=== PATIENT | male | born 1965 | race Caucasian/White ===

== ENCOUNTER 2017-06-03 15:22 | Inpatient (IN) | payer MEDICAID ==
[~2017-06-03] VITALS: Ht 157.5 cm; Wt 56.2 kg
[2017-06-03 15:24] VITALS: BP_SYST 152
[2017-06-03 15:54] LABS: BASOPHILS % (AUTO) 0.4 % (0.0-2.0); HEMATOCRIT 35.9 % (36-54); HEMOGLOBIN 12.3 g/dL (14.0-18.0); LYMPHOCYTES % (AUTO) 9.1 % (20.5-51.5); MEAN CORPUSCULAR HEMOGLOBIN 34 pg (27-31); MEAN CORPUSCULAR HGB CONC 34 % (32-36); MEAN CORPUSCULAR VOLUME 101 fL (79.0-98.0); MONOCYTES # (AUTO) 1.5 K/uL (0.0-1.0); MONOCYTES % (AUTO) 13.7 % (1.7-9.3); NEUTROPHILS # (AUTO) 8.4 K/uL (1.8-7.7); NEUTROPHILS % (AUTO) 76.8 % (40.0-70.0); PLATELET COUNT (AUTO) 227 K/uL (130-430); RED BLOOD CELL COUNT(AUTO) 3.57 MIL/uL (4.2-6.2); RED CELL DISTRIBUTION WIDTH 13.7 % (9.0-15.0); WHITE BLOOD COUNT (AUTO) 10.9 K/uL (4.8-10.8)
[2017-06-03 16:19] LABS: PROTHROMBIN TIME 10.5 SECS (9.5-12.5)
[2017-06-03 16:34] LABS: ANION GAP 11 (5-15); CALCIUM 9.1 mg/dL (8.4-11.0); CHLORIDE 90 mmol/L (98-107); CREATININE 1.31 mg/dL (0.55-1.30); GLUCOSE 93 mg/dL (70-99); POTASSIUM 3.5 mmol/L (3.5-5.1); SODIUM SERUM 127 mmol/L (136-145); UREA NITROGEN, BLOOD 28 mg/dL (8-21)
[2017-06-03 16:39] LABS: ALANINE AMINOTRANSFERASE 84 U/L (12-78); ALBUMIN 3.7 g/dL (3.4-4.8); ASPARTATE AMINOTRANSFERASE 199 U/L (10-37); TOTAL BILIRUBIN 1.7 mg/dL (0.0-1.0)
[2017-06-03 16:47] LABS: GFR AFRICAN AMERICAN 75 mL/min (>90)
[2017-06-03 17:06] LABS: ALCOHOL, BLOOD < 3 mg/dL (<10)
[2017-06-03 17:09] LABS: ACETAMINOPHEN < 1 ug/mL (1-30)
[2017-06-03] MEDS ORDERED: ASPIRIN 325 MG TABLET PO ONE (17:15)
[2017-06-03] MEDS ORDERED: NACL 0.9% 1,000 ML IV ONE ×2 (17:15→18:30)
[2017-06-03] MEDS ORDERED: LORazepam 2 MG/ML VIAL (FOR ER USE) IVP ONE ×3 (17:15→18:45)
[2017-06-03] MEDS ORDERED: MAGN400O4 PO (17:59)
[2017-06-03] MEDS ORDERED: ANT30 PO (17:59)
[2017-06-03] MEDS ORDERED: VIS50 PO (17:59)
[2017-06-03] MEDS ORDERED: HAL5 PO (17:59)
[2017-06-03] MEDS ORDERED: ACET325T53 PO (17:59)
[2017-06-03] MEDS ORDERED: TRAZ-123 PO (17:59)
[2017-06-03] MEDS ORDERED: FOLI-43 PO (17:59)
[2017-06-03] MEDS ORDERED: CAT.1 PO (17:59)
[2017-06-03] MEDS ORDERED: BEN50 PO (17:59)
[2017-06-03] MEDS ORDERED: MULT PO (17:59)
[2017-06-03] MEDS ORDERED: LORA2TAB95 PO (17:59)
[2017-06-03] MEDS ORDERED: promethazine IM (17:59)
[2017-06-03] MEDS ORDERED: vitamin b-1 (17:59)
[2017-06-03] MEDS ORDERED: IBUP-1969 PO (17:59)
[2017-06-03] MEDS ORDERED: ACETAMINOPHEN 325 MG TABLET PO PRN (18:15)
[2017-06-03] MEDS ORDERED: MORPHINE 2 MG/ML INJ. SYRINGE IVP PRN (18:15)
[2017-06-03] MEDS ORDERED: NITROGLYCERIN 0.4 MG TAB.SUBL SL PRN (18:30)
[2017-06-03] MEDS: cefTRIAXone 1 GM in D5W 50 ML IV SCH (18:30)
[2017-06-03] MEDS ORDERED: POTASSIUM CHLORIDE 20 MEQ TAB.PRT.SR PO PRN (18:45)
[2017-06-03] MEDS ORDERED: ONDANSETRON HCL 4 MG/2 ML VIAL IM PRN (18:45)
[2017-06-03] MEDS ORDERED: ZOLPIDEM TARTRATE 5 MG TABLET PO PRN (18:45)
[2017-06-03] MEDS ORDERED: HYDROcodone/ACETAMIN 10-325 MG TAB PO PRN (18:45)
[2017-06-03] MEDS ORDERED: HEPARIN 25,000 UNITS/D5W 250ML 250 ML IV PRN ×2 (18:45)
[2017-06-03] MEDS ORDERED: BISACODYL 10 MG/SUPPOSITORY RC PRN (18:45)
[2017-06-03] MEDS ORDERED: SIMETHICONE 80 MG TAB.CHEW PO PRN (18:45)
[2017-06-03] MEDS ORDERED: LORazepam 2 MG/ML VIAL (FOR ER USE) ONE (18:56)
[2017-06-03 19:09] LABS: FREE T4 (FREE THYROXINE) 1.3 ng/dl (0.8-1.5); PHOSPHORUS 3.8 mg/dL (2.7-4.5); THYROID STIMULATING HORMONE 4.14 uIu/mL (0.36-3.74)
[2017-06-03 19:33] VITALS: BP_SYST 133
[2017-06-03] MEDS ORDERED: cefTRIAXone 1 GM IVPB PREMIX 50 ML IV ONE (20:42)
[2017-06-03] MEDS ORDERED: *HEPARIN PER PHARMACY XX PRN (21:30)
[2017-06-03] MEDS ORDERED: HEPARIN SODIUM, PORCINE 10,000 UNITS/ 10 ML VIAL IV ONE (21:30)
[2017-06-03] MEDS: DOCUSATE SODIUM 100 MG CAPSULE PO SCH (22:33)
[2017-06-03] MEDS: METOPROLOL TARTRATE 25 MG TABLET PO SCH (22:34)
[2017-06-03 23:02] VITALS: BP_SYST 133
[2017-06-03] MEDS: NACL 0.9% 1,000 ML IV SCH (23:08)
[2017-06-03] MEDS: LORazepam 2 MG/ML VIAL IVP PRN ×2 (23:09→23:17)
[2017-06-04] VITALS (9 sets, daily range): BP systolic 108–154
[2017-06-04] MEDS ORDERED: HALOPERIDOL LACTATE 5 MG/ML VIAL IVP ONE (01:00)
[2017-06-04] MEDS: NACL 0.9% 1,000 ML IV SCH ×3 (04:03→22:01)
[2017-06-04 07:02] LABS: BASOPHILS % (AUTO) 0.4 % (0.0-2.0); EOSINOPHILS % (AUTO) 0.2 % (0.0-4.0); HEMATOCRIT 33.6 % (36-54); HEMOGLOBIN 11.6 g/dL (14.0-18.0); LYMPHOCYTES % (AUTO) 10.6 % (20.5-51.5); MEAN CORPUSCULAR HEMOGLOBIN 35 pg (27-31); MEAN CORPUSCULAR HGB CONC 35 % (32-36); MEAN CORPUSCULAR VOLUME 101 fL (79.0-98.0); MONOCYTES # (AUTO) 1.6 K/uL (0.0-1.0); MONOCYTES % (AUTO) 17.2 % (1.7-9.3); NEUTROPHILS % (AUTO) 71.6 % (40.0-70.0); PLATELET COUNT (AUTO) 232 K/uL (130-430); RED BLOOD CELL COUNT(AUTO) 3.34 MIL/uL (4.2-6.2); RED CELL DISTRIBUTION WIDTH 13.8 % (9.0-15.0); WHITE BLOOD COUNT (AUTO) 9.6 K/uL (4.8-10.8)
[2017-06-04] MEDS ORDERED: HALOPERIDOL 5 MG TABLET (HALDOL) PO PRN (08:00)
[2017-06-04] MEDS ORDERED: MILK OF MAGNESIA 30 ML UDC PO PRN (08:00)
[2017-06-04 09:11] LABS: CALCIUM 8.6 mg/dL (8.4-11.0); POTASSIUM 2.9 mmol/L (3.5-5.1); TOTAL BILIRUBIN 1.4 mg/dL (0.0-1.0)
[2017-06-04 09:12] LABS: ALBUMIN 3.1 g/dL (3.4-4.8)
[2017-06-04] MEDS ORDERED: HEPARIN SODIUM,PORCINE 2000 UNITS/0.4 ML BOLUS IVP PRN (09:45)
[2017-06-04] MEDS ORDERED: HEPARIN SODIUM,PORCINE 3000 UNITS/0.6 ML BOLUS IVP PRN (09:45)
[2017-06-04 09:49] LABS: BILIRUBIN,URINE NEGATIVE (NEGATIVE); BLOOD, URINE 2+ (NEGATIVE); CLARITY/URINE CLEAR (CLEAR); COLOR,URINE YELLOW (YELLOW); GLUCOSE,URINE NEGATIVE (NEGATIVE); KETONES,URINE TRACE (NEGATIVE); LEUKOCYTE ESTERASE ,URINE 2+ (NEGATIVE); NITRITE, URINE NEGATIVE (NEGATIVE); PROTEIN URINE NEGATIVE (NEGATIVE); UROBILINOGEN,URINE 0.2 (0.2-1.0)
[2017-06-04 09:54] LABS: BACTERIA,URINE MODERATE /HPF (None Seen); WBC,URINE 20-50 /HPF (0-3)
[2017-06-04] MEDS: MORPHINE 2 MG/ML INJ. SYRINGE IVP PRN ×3 (09:54→20:17)
[2017-06-04 10:07] LABS: BARBITURATE, URINE NEGATIVE (NEG <=200); BENZODIAZEPINE, URINE POSITIVE (NEG <=150); CANNABINOID, URINE POSITIVE (NEG <=50); COCAINE, URINE NEGATIVE (NEG <=150); METHAMPHETAMINES SCREEN,URINE POSITIVE (NEG <=500); PHENCYCLIDINE SCREEN,URINE NEGATIVE (NEG <=25); URINE AMPHETAMINE POSITIVE (NEG <=500); URINE METHADONE NEGATIVE (NEG <=200)
[2017-06-04 10:08] LABS: OPIATE, URINE NEGATIVE (NEG <=100); UR TRICYCLIC ANTIDEPRESSANTS NEGATIVE (NEG <=300); URINE OXYCODONE SCREEN NEGATIVE (NEG <=100); URINE PROPOXYPHENE SCREEN NEGATIVE (NEG <=300)
[2017-06-04] MEDS: DOCUSATE SODIUM 100 MG CAPSULE PO SCH ×2 (10:13→21:59)
[2017-06-04] MEDS: ASPIRIN 81 MG TAB.CHEW PO SCH (10:14)
[2017-06-04] MEDS: THIAMINE HCL 100 MG TABLET PO SCH (10:14)
[2017-06-04] MEDS: ATORVASTATIN 20 MG TABLET PO SCH (10:14)
[2017-06-04] MEDS: MULTIVITAMINS TAB 1 TABLET PO SCH (10:14)
[2017-06-04] MEDS: FOLIC ACID 1 MG TABLET PO SCH (10:14)
[2017-06-04] MEDS: LISINOPRIL 10 MG TABLET (PRINIVIL) PO SCH (10:15)
[2017-06-04] MEDS: METOPROLOL TARTRATE 25 MG TABLET PO SCH ×2 (10:15→21:58)
[2017-06-04] MEDS ORDERED: POTASSIUM CHLORIDE 20 MEQ TAB.PRT.SR PO ONE (10:30)
[2017-06-04] MEDS: QUEtiapine FUMARATE 25 MG TABLET PO SCH ×2 (14:57→21:56)
[2017-06-04] MEDS: cefTRIAXone 1 GM in D5W 50 ML IV SCH (17:28)
[2017-06-04] MEDS: traZODone HCL 50 MG TABLET (DESYREL) PO SCH (21:58)
[2017-06-04] MEDS: LORazepam 2 MG/ML VIAL IVP PRN (22:01)
[2017-06-05] MEDS: MORPHINE 2 MG/ML INJ. SYRINGE IVP PRN (00:46)
[2017-06-05 04:07] VITALS: BP_SYST 130
[2017-06-05] MEDS: LORazepam 2 MG/ML VIAL IVP PRN (05:04)
[2017-06-05 06:55] LABS: BASOPHILS # (AUTO) 0.1 K/uL (0.0-0.2); BASOPHILS % (AUTO) 0.5 % (0.0-2.0); EOSINOPHILS # (AUTO) 0.1 K/uL (0.0-0.4); EOSINOPHILS % (AUTO) 0.9 % (0.0-4.0); HEMATOCRIT 32.1 % (36-54); HEMOGLOBIN 10.9 g/dL (14.0-18.0); LYMPHOCYTES # (AUTO) 1.5 K/uL (1.0-5.5); LYMPHOCYTES % (AUTO) 14.1 % (20.5-51.5); MEAN CORPUSCULAR HEMOGLOBIN 35 pg (27-31); MEAN CORPUSCULAR HGB CONC 34 % (32-36); MEAN CORPUSCULAR VOLUME 102 fL (79.0-98.0); MONOCYTES # (AUTO) 1.8 K/uL (0.0-1.0); MONOCYTES % (AUTO) 17.1 % (1.7-9.3); NEUTROPHILS % (AUTO) 67.4 % (40.0-70.0); PLATELET COUNT (AUTO) 214 K/uL (130-430); RED BLOOD CELL COUNT(AUTO) 3.14 MIL/uL (4.2-6.2); RED CELL DISTRIBUTION WIDTH 13.4 % (9.0-15.0); WHITE BLOOD COUNT (AUTO) 10.5 K/uL (4.8-10.8)
[2017-06-05 07:10] LABS: CALCIUM 8.4 mg/dL (8.4-11.0); CREATININE 0.94 mg/dL (0.55-1.30); PHOSPHORUS 2.8 mg/dL (2.7-4.5); POTASSIUM 4.2 mmol/L (3.5-5.1)
[2017-06-05] MEDS: NACL 0.9% 1,000 ML IV SCH (07:37)
[2017-06-05 08:00] VITALS: BP_SYST 117
[2017-06-05 08:57] VITALS: BP_SYST 117
[2017-06-05] MEDS: THIAMINE HCL 100 MG TABLET PO SCH (09:00)
[2017-06-05] MEDS: DOCUSATE SODIUM 100 MG CAPSULE PO SCH ×2 (10:39→21:23)
[2017-06-05] MEDS: LISINOPRIL 10 MG TABLET (PRINIVIL) PO SCH (10:40)
[2017-06-05] MEDS: MULTIVITAMINS TAB 1 TABLET PO SCH ×2 (10:40→10:44)
[2017-06-05] MEDS: ONDANSETRON HCL 4 MG/2 ML VIAL IVP PRN (10:41)
[2017-06-05] MEDS: FOLIC ACID 1 MG TABLET PO SCH (10:41)
[2017-06-05] MEDS: ASPIRIN 81 MG TAB.CHEW PO SCH (10:41)
[2017-06-05] MEDS: HALOPERIDOL LACTATE 5 MG/ML VIAL IVP PRN (10:42)
[2017-06-05] MEDS: ATORVASTATIN 20 MG TABLET PO SCH (10:44)
[2017-06-05] MEDS: METOPROLOL TARTRATE 25 MG TABLET PO SCH ×2 (10:45→21:23)
[2017-06-05] MEDS: QUEtiapine FUMARATE 25 MG TABLET PO SCH ×3 (10:52→21:23)
[2017-06-05 11:58] VITALS: BP_SYST 135
[2017-06-05 16:00] VITALS: BP_SYST 116
[2017-06-05 18:30] VITALS: BP_SYST 112
[2017-06-05] MEDS: cefTRIAXone 1 GM in D5W 50 ML IV SCH (18:52)
[2017-06-05] MEDS: traZODone HCL 50 MG TABLET (DESYREL) PO SCH (21:22)
[2017-06-05 22:22] LABS: HEMOGLOBIN A1C 5.1 % (4.8-5.6)
[2017-06-06 00:43] VITALS: BP_SYST 121
[2017-06-06 02:17] LABS: T4 (THYROXINE) 8.5 ug/dL (4.5-12.0)
[2017-06-06] MEDS: LORazepam 2 MG/ML VIAL IVP PRN (03:32)
[2017-06-06] MEDS: HALOPERIDOL LACTATE 5 MG/ML VIAL IVP PRN (04:20)
[2017-06-06 08:00] VITALS: BP_SYST 118
[2017-06-06 08:47] LABS: HEMATOCRIT 37.9 % (36-54); HEMOGLOBIN 12.7 g/dL (14.0-18.0); MEAN CORPUSCULAR HEMOGLOBIN 34 pg (27-31); MEAN CORPUSCULAR HGB CONC 34 % (32-36); MEAN CORPUSCULAR VOLUME 101 fL (79.0-98.0); PLATELET COUNT (AUTO) 311 K/uL (130-430); RED BLOOD CELL COUNT(AUTO) 3.74 MIL/uL (4.2-6.2); RED CELL DISTRIBUTION WIDTH 13.6 % (9.0-15.0); WHITE BLOOD COUNT (AUTO) 8.6 K/uL (4.8-10.8)
[2017-06-06 09:00] LABS: CALCIUM 9.5 mg/dL (8.4-11.0); CREATININE 0.92 mg/dL (0.55-1.30)
[2017-06-06 09:01] LABS: PHOSPHORUS 4.3 mg/dL (2.7-4.5)
[2017-06-06] MEDS: THIAMINE HCL 100 MG TABLET PO SCH (09:13)
[2017-06-06] MEDS: ATORVASTATIN 20 MG TABLET PO SCH (09:13)
[2017-06-06] MEDS: MULTIVITAMINS TAB 1 TABLET PO SCH (09:13)
[2017-06-06] MEDS: ASPIRIN 81 MG TAB.CHEW PO SCH (09:13)
[2017-06-06] MEDS: QUEtiapine FUMARATE 25 MG TABLET PO SCH ×3 (09:13→21:02)
[2017-06-06] MEDS: DOCUSATE SODIUM 100 MG CAPSULE PO SCH ×2 (09:15→21:02)
[2017-06-06] MEDS: LISINOPRIL 10 MG TABLET (PRINIVIL) PO SCH ×2 (09:15→09:16)
[2017-06-06] MEDS: FOLIC ACID 1 MG TABLET PO SCH (09:15)
[2017-06-06] MEDS: ONDANSETRON HCL 4 MG/2 ML VIAL IVP PRN (09:16)
[2017-06-06] MEDS: METOPROLOL TARTRATE 25 MG TABLET PO SCH ×2 (09:17→21:02)
[2017-06-06 11:33] LABS: ATYPICAL LYMPHOCYTES % 2 % (0-0); BAND % (MANUAL) 2 % (0-6); BASOPHILS % (MANUAL) 0 % (0-2); EOSINOPHILS % (MANUAL) 0 % (0-7); LYMPHOCYTES % (MANUAL) 22 % (20-46); MONOCYTES % (MANUAL) 18 % (0-11)
[2017-06-06 11:34] VITALS: BP_SYST 125
[2017-06-06 16:11] VITALS: BP_SYST 117
[2017-06-06 18:45] VITALS: BP_SYST 114
[2017-06-06] MEDS: cefTRIAXone 1 GM in D5W 50 ML IV SCH (19:06)
[2017-06-06] MEDS: traZODone HCL 50 MG TABLET (DESYREL) PO SCH (21:01)
[2017-06-07] MEDS: MORPHINE 2 MG/ML INJ. SYRINGE IVP PRN (00:33)
[2017-06-07 01:03] VITALS: BP_SYST 118
[2017-06-07 08:00] VITALS: BP_SYST 114
[2017-06-07] MEDS: ASPIRIN 81 MG TAB.CHEW PO SCH (08:44)
[2017-06-07] MEDS: FOLIC ACID 1 MG TABLET PO SCH (08:44)
[2017-06-07] MEDS: DOCUSATE SODIUM 100 MG CAPSULE PO SCH (08:44)
[2017-06-07] MEDS: THIAMINE HCL 100 MG TABLET PO SCH (08:45)
[2017-06-07] MEDS: ATORVASTATIN 20 MG TABLET PO SCH (08:45)
[2017-06-07] MEDS: QUEtiapine FUMARATE 25 MG TABLET PO SCH ×2 (08:45→15:47)
[2017-06-07] MEDS: LISINOPRIL 10 MG TABLET (PRINIVIL) PO SCH (08:46)
[2017-06-07] MEDS: METOPROLOL TARTRATE 25 MG TABLET PO SCH (08:53)
[2017-06-07 12:20] VITALS: BP_SYST 121
[2017-06-07 16:02] VITALS: BP_SYST 120
[2017-06-07 16:23] VITALS: BP_SYST 124
== END 2017-06-07 16:50 | disposition home or self-care (01) | DRG 190 ==
LOC: SED 15:22 → STU 18:07 → SMU 06-06 15:56
PROVIDERS: ADMIT Family Medicine; ATTEND Family Medicine
DX: I21.4 Non-ST elevation (NSTEMI) myocardial infarction (principal); N17.0 Acute kidney failure with tubular necrosis; G93.41 Metabolic encephalopathy; E44.0 Moderate protein-calorie malnutrition; K74.60 Unspecified cirrhosis of liver; F19.10 Other psychoactive substance abuse, uncomplicated; F20.9 Schizophrenia, unspecified; I10 Essential (primary) hypertension; F12.90 Cannabis use, unspecified, uncomplicated; E78.5 Hyperlipidemia, unspecified; F29 Unspecified psychosis not due to a substance or known physiological condition; F10.10 Alcohol abuse, uncomplicated; E87.6 Hypokalemia; Y90.0 Blood alcohol level of less than 20 mg/100 ml; F41.9 Anxiety disorder, unspecified; Z68.22 Body mass index [BMI] 22.0-22.9, adult; T50.995A Adverse effect of other drugs, medicaments and biological substances, initial encounter; Y92.89 Other specified places as the place of occurrence of the external cause; Z79.899 Other long term (current) drug therapy; Z90.81 Acquired absence of spleen
CPT/HCPCS: 36415; 71010; 76700-TC; 80048; 80053; 80061; 80307; 81000-TC; 82150-TC; 83036; 83690-TC; 83735-TC; 83880; 84100-TC; 84436; 84439; 84443-TC; 84479; 84484; 85007; 85025; 85027; 85610-TC; 85730-TC; 87040-TC; 93005; 93306; 96361; 96374; 96376; 99285; G0480; G0481; G0482; J0696; J1630; J1644; J2060; J2270; J2405; J7030; J7040; J7060

== ENCOUNTER 2017-06-16 17:06 | Emergency (ER) | payer MEDICAID ==
[~2017-06-16] VITALS: Ht 167.6 cm; Wt 63.5 kg
[~2017-06-16 17:06] MED LIST: ACET325T53 PO; ANT30 PO; BEN50 PO; CAT.1 PO; FOLI-43 PO; HAL5 PO; IBUP-1969 PO; LORA2TAB95 PO; MAGN400O4 PO; MULT PO; TRAZ-123 PO; VIS50 PO; promethazine IM; vitamin b-1
[2017-06-16 17:10] VITALS: BP 140/90; PULSE 70; RESP 18; TEMP 98.1; O2SAT 98
[2017-06-16] MEDS ORDERED: IBUPROFEN 800 MG TABLET PO ONE (19:00)
[2017-06-16 19:10] VITALS: BP 131/88; PULSE 75; RESP 18; TEMP 97.9; O2SAT 98
== END 2017-06-16 19:10 | disposition home or self-care (01) ==
LOC: SED 17:06
DX: S20.212A Contusion of left front wall of thorax, initial encounter (principal); W19.XXXA Unspecified fall, initial encounter; Y93.89 Activity, other specified; Y92.89 Other specified places as the place of occurrence of the external cause; Y99.8 Other external cause status
CPT/HCPCS: 71020-TC; 99284